=== PATIENT | male | born 1985 ===

== ENCOUNTER 2024-03-06 10:26 | Emergency (ER) | payer OTHER ==
[~2024-03-06] VITALS: Ht 165.1 cm; Wt 65.0 kg
[2024-03-06] MEDS ORDERED: Ibuprofen 400 MG Tab PO ONE (10:50)
[2024-03-06] MEDS ORDERED: IBUP800 PO (12:13)
[2024-03-06] MEDS ORDERED: [UNRECOGNIZED DRUG - OTHER] TOP (12:13)
== END 2024-03-06 12:19 | disposition home or self-care (01) ==
LOC: ER 10:26
DX: S30.0XXA Contusion of lower back and pelvis, initial encounter (principal); W01.0XXA Fall on same level from slipping, tripping and stumbling without subsequent striking against object, initial encounter
CPT/HCPCS: 72170; 99283-25; A9270